=== PATIENT | male | born 1985 | race Caucasian/White ===

== ENCOUNTER 2023-05-13 20:27 | Emergency (ER) | payer OTHER ==
[~2023-05-13] VITALS: Ht 170.2 cm; Wt 79.5 kg
[2023-05-13 20:28] VITALS: BP 124/88; TEMP 98; O2SAT 98
[2023-05-13 22:26] LABS: RSV AMPLIFICATION NEGATIVE (NEGATIVE)
== END 2023-05-14 00:22 | disposition left against medical advice (07) ==
LOC: M ED 20:27
DX: Z53.21 Procedure and treatment not carried out due to patient leaving prior to being seen by health care provider (principal)